=== PATIENT | male | born 1980 | race Two or more races ===

== ENCOUNTER 2018-01-29 01:17 | Emergency (ER) | END 2018-01-29 04:34 | disposition home or self-care (01) ==

== ENCOUNTER 2018-01-29 16:20 | Emergency (ER) | END 2018-01-29 18:41 | disposition home or self-care (01) ==

== ENCOUNTER 2018-02-28 01:38 | Emergency (ER) | END 2018-02-28 03:02 | disposition left against medical advice (07) ==